=== PATIENT | male | born 1995 | race Caucasian/White ===

== ENCOUNTER 2016-08-08 22:12 | Emergency (ER) | payer OTHER ==
[~2016-08-08] VITALS: Ht 182.9 cm; Wt 84.1 kg
[~2016-08-08 22:12] MED LIST: KEPPRA 500MG500 MG PO
[2016-08-08 22:14] VITALS: TEMP 97.8
[2016-08-08 22:36] LABS: BASO % 0.4 % (0.0-2.0); EOS # 0.3 (0.0-0.7); EOS % 3.4 % (0-4.0); GRAN # 4.5 (1.4-6.5); HEMATOCRIT 46.4 % (42.0-52.0); HEMOGLOBIN 16.3 g/dl (13.5-18.0); LYMPH # 2.1 (1.2-3.4); LYMPH % 28.5 % (20.0-51.0); MEAN CELL VOLUME 81 fl (80.0-100.0); MEAN CORPUSCULAR HEMOGLOBIN 29 pg (27.0-31.0); MEAN CORPUSCULAR HGB CONC 35 g/dl (33.0-37.0); MEAN PLATELET VOLUME 10.5 fl (7.4-10.4); MONO # 0.5 (0.1-0.6); PLATELET COUNT 178 K/mm3 (130-400); RED BLOOD COUNT 5.72 M/mm3 (4.20-5.60); REDCELL DISTRIBUTION WIDTH-CV 11.9 % (11.5-14.5); WHITE BLOOD COUNT 7.4 K/mm3 (4.8-10.8)
[2016-08-08 22:48] LABS: ADJUSTED CALCIUM 9.4 mg/dL (8.4-10.2); ALBUMIN 4.8 gm/dL (3.5-5.0); BILIRUBIN,TOTAL 1.3 mg/dL (0.0-1.0); CREATININE, serum 0.92 mg/dL (0.66-1.25); TOTAL PROTEIN 7.8 gm/dL (6.4-8.2)
[2016-08-08 23:04] LABS: PROLACTIN 44.9 ng/mL (3.7-17.9)
[2016-08-08 23:39] VITALS: BP 121/86; PULSE 88
== END 2016-08-08 23:39 | disposition home or self-care (01) ==
LOC: COL.ER 22:12
PROVIDERS: Emergency Medicine
DX: R56.9 Unspecified convulsions (principal)
CPT/HCPCS: J1953

== ENCOUNTER 2020-10-17 12:19 | Emergency (ER) | payer OTHER ==
[~2020-10-17] VITALS: Ht 182.9 cm; Wt 86.4 kg
[2020-10-17 12:20] VITALS: TEMP 97.4
[2020-10-17 13:02] LABS: BASO % 0.3 % (0.0-2.0); EOS # 0.3 (0.0-0.7); EOS % 2.3 % (0-4.0); GRAN # 8.3 (1.4-6.5); GRAN % 74.3 % (42.2-75.2); HEMATOCRIT 42.8 % (42.0-52.0); HEMOGLOBIN 14.8 g/dl (13.5-18.0); LYMPH # 1.8 (1.2-3.4); LYMPH % 15.8 % (20.0-51.0); MEAN CELL VOLUME 84 fl (80.0-100.0); MEAN CORPUSCULAR HEMOGLOBIN 29 pg (27.0-31.0); MEAN CORPUSCULAR HGB CONC 35 g/dl (33.0-37.0); MEAN PLATELET VOLUME 10.9 fl (7.4-10.4); MONO # 0.8 (0.1-0.6); MONO % 6.8 % (1.7-9.3); PLATELET COUNT 193 K/mm3 (130-400); REDCELL DISTRIBUTION WIDTH-CV 11.5 % (11.5-14.5)
[2020-10-17 13:06] LABS: ALBUMIN 3.7 gm/dL (3.5-5.0); BILIRUBIN,TOTAL 0.6 mg/dL (0.0-1.0); CALCIUM 8.9 mg/dL (8.4-10.2); CREATININE, serum 0.8 (0.66-1.25); POTASSIUM 3.6 mmol/L (3.4-5.0); TOTAL PROTEIN 6.6 gm/dL (6.4-8.2)
[2020-10-17] MEDS ORDERED: DEPAKOTE ER 50500 MG PO (17:38)
[2020-10-17 18:14] LABS: COLLECTION METHOD CLEAN CATCH
[2020-10-17 18:24] LABS: MUCOUS Present /lpf; PH 5 (5-8); SQUAMOUS EPITHELIAL None Seen /hpf; URINE APPEARANCE Clear; URINE BACTERIA None Seen /hpf; URINE BILIRUBIN Negative (NEGATIVE); URINE BLOOD Negative (NEGATIVE); URINE COLOR Yellow; URINE GLUCOSE Negative (NEGATIVE); URINE KETONE 1+ (NEGATIVE); URINE LEUKOCYTE ESTERASE Negative (NEGATIVE); URINE NITRATE Negative (NEGATIVE); URINE PROTEIN(semi-quant) Negative (NEGATIVE); URINE RBC None Seen /hpf; URINE UROBILINOGEN Negative (NEGATIVE)
[2020-10-17 18:28] VITALS: BP 138/76; PULSE 85
== END 2020-10-17 18:38 | disposition short-term general hospital (02) ==
LOC: COL.ER 12:19
PROVIDERS: Emergency Medicine
DX: S09.90XA Unspecified injury of head, initial encounter (principal); S02.2XXB Fracture of nasal bones, initial encounter for open fracture; S05.42XA Penetrating wound of orbit with or without foreign body, left eye, initial encounter; M25.512 Pain in left shoulder; M79.605 Pain in left leg; G40.909 Epilepsy, unspecified, not intractable, without status epilepticus; Z88.0 Allergy status to penicillin; Z79.899 Other long term (current) drug therapy; W55.12XA Struck by horse, initial encounter
CPT/HCPCS: J0690; J2270; J2405; J3010; J7030; Q9967

== ENCOUNTER 2020-10-31 17:01 | Emergency (ER) | payer OTHER ==
[~2020-10-31] VITALS: Ht 182.9 cm; Wt 86.4 kg
[~2020-10-31 17:01] MED LIST changes: +DEPAKOTE ER 50500 MG PO
[2020-10-31 17:14] VITALS: TEMP 98.3
[2020-10-31] MEDS ORDERED: CLEOCIN HCL300 MG PO (18:22)
[2020-10-31] MEDS ORDERED: PEPCID40 MG PO (18:22)
[2020-10-31] MEDS ORDERED: ATARAX50 MG PO (18:22)
[2020-10-31 18:30] VITALS: BP 129/78; PULSE 78
== END 2020-10-31 18:38 | disposition home or self-care (01) ==
LOC: COL.ER 17:01
DX: S61.532A Puncture wound without foreign body of left wrist, initial encounter (principal); Z88.0 Allergy status to penicillin; Z88.6 Allergy status to analgesic agent; W46.0XXA Contact with hypodermic needle, initial encounter
CPT/HCPCS: J1100

== ENCOUNTER 2022-08-03 17:41 | Emergency (ER) | payer BC ==
[~2022-08-03] VITALS: Ht 182.9 cm; Wt 93.2 kg
[~2022-08-03 17:41] MED LIST changes: +ATARAX50 MG PO; +CLEOCIN HCL300 MG PO; +PEPCID40 MG PO
[2022-08-03 17:48] VITALS: TEMP 98.5
[2022-08-03 18:37] LABS: BASO % 0.2 % (0.0-2.0); EOS # 0.2 K/mm3 (0.0-0.7); EOS % 2.2 % (0.0-4.0); GRAN # 5.4 K/mm3 (1.4-6.5); GRAN % 66.1 % (42.2-75.2); HEMATOCRIT 41.8 % (42.0-52.0); HEMOGLOBIN 14.2 g/dl (13.5-18.0); LYMPH # 1.5 K/mm3 (1.2-3.4); LYMPH % 18.5 % (20.0-51.0); MEAN CELL VOLUME 85 fl (80.0-100.0); MEAN CORPUSCULAR HEMOGLOBIN 29 pg (27-31); MEAN CORPUSCULAR HGB CONC 34 g/dl (33.0-37.0); MEAN PLATELET VOLUME 10.3 fl (7.4-10.4); MONO % 12.1 % (1.7-9.3); PLATELET COUNT 203 K/mm3 (130-400); RED BLOOD COUNT 4.94 M/mm3 (4.20-5.60); REDCELL DISTRIBUTION WIDTH-CV 11.5 % (11.5-14.5)
[2022-08-03 18:57] LABS: ALBUMIN 3.6 gm/dL (3.5-5.0); BILIRUBIN,TOTAL 0.9 mg/dL (0.2-1.2); C-REACTIVE PROTEIN 6.83 mg/dL (0.00-0.50); CALCIUM 9.5 mg/dL (8.4-10.2); CREATININE, serum 0.91 mg/dL (0.72-1.25); POTASSIUM 4.3 mmol/L (3.5-4.5); TOTAL PROTEIN 7.1 gm/dL (6.2-8.1)
[2022-08-03 19:31] LABS: ERYTHROCYTE SEDIMENTATION RATE 8 mm/hr (0-15)
[2022-08-03] MEDS ORDERED: CEPHALEXIN500 M1 PO (19:55)
[2022-08-03 21:23] VITALS: BP 137/87; PULSE 91
== END 2022-08-03 21:24 | disposition home or self-care (01) ==
LOC: COL.ER 17:41
PROVIDERS: Nurse Practitioner Family
DX: L03.115 Cellulitis of right lower limb (principal); R79.1 Abnormal coagulation profile; Z98.890 Other specified postprocedural states; Z88.0 Allergy status to penicillin
CPT/HCPCS: J1650; Q9967

== ENCOUNTER → 2022-08-04 | Outpatient (CLI) | payer BC ==
[~2022-08-04] MED LIST changes: +CEPHALEXIN500 M1 PO
== END ==
LOC: COL.VAS 05:30
DX: L03.115 Cellulitis of right lower limb (principal)